=== PATIENT | male | born 1985 | race Caucasian/White ===

== ENCOUNTER 2016-11-09 10:31 | Inpatient (IN) | payer SELFPAY ==
[2016-11-09] MEDS ORDERED: DIPHENHYDRAMINE HCL 50 MG/ML VIAL ONE (10:39)
[2016-11-09] MEDS ORDERED: METHYLPREDNISOLONE INJ 125 MG/2 ML SDV ONE (10:40)
[2016-11-09] MEDS ORDERED: FAMOTIDINE INJ/PF 20 MG/2 ML SDV IV ONE (10:40)
[2016-11-09] MEDS ORDERED: EPINEPHRINE INJ/PF 1 MG/1 ML AMPULE ONE (10:40)
[2016-11-09] MEDS ORDERED: NORMAL SALINE 1000 ML 1,000 ML IV ONE (10:42)
[2016-11-09] MEDS ORDERED: HYDROMORPHONE HCL INJ/PF 2 MG/ML AMPULE IV ONE (10:43)
--- NOTE | 2016-11-09 10:47 | ER Document Report ---
ED General - General Chief Complaint: Facial Swelling Stated Complaint: POSSIBLE ALLERGIC REACTION Time Seen by Provider: 11/09/16 10:42 Notes: 31-year-old male presented with 4 days of worsening lower lip swelling, associated with difficulty swallowing secondary to poor mouth closing. He has no neck or throat pain. The pain in his lip radiates into his chin and he has some left sub-mandibular pain as well. He has not been eating and drinking well with this. No fevers or chills. He states that he pulled a hair, ingrown , out of his left lower lip a few days back and the swelling followed that. He has been taking Bactrim prescribed by urgent care yesterday but has not been helping. No shortness of breath or voice change. TRAVEL OUTSIDE OF THE [place] IN LAST 30 DAYS: No - Related Data Allergies/Adverse Reactions: No Known Allergies Allergy (Verified 11/09/16 10:33) Past Medical History - General Information source: Patient - Social History Smoking Status: Current Every Day Smoker Drug Abuse: Heroin, Prescription drugs Family History: Reviewed & Not Pertinent Patient has suicidal ideation: No Patient has homicidal ideation: No Renal/ Medical History: Denies: Hx Peritoneal Dialysis Skin Medical History: Comment Only Hx MRSA - MRSA 07/21/2008 [facility] Review of Systems - Review of Systems Notes: REVIEW OF SYSTEMS GEN: Denies fever, chills, weight loss ENT: Denies sore throat, nasal discharge, ear pain EYES: Denies blurry vision, eye pain, discharge CV: Denies chest pain, palpitations, edema RESP: Denies cough, shortness of breath, wheezing GI: Denies abdominal pain, nausea, vomiting, diarrhea MSK: Denies joint pain/swelling, edema, SKIN: lower lip swelling LYMPH: Denies swollen glands/lymph nodes NEURO: Denies headache, focal weakness or numbness, dizziness PSYCH: Denies depression, suicidal or homicidal ideation PHYSICAL EXAMINATION General: No acute distress, well-nourished Head: Atraumatic, normocephalic ENT: Induration and fluctuance of the entire lower lip, thickening of the entire lower lip comes symmetric. Normal voice, handling secretions. Inability to close mouth. Left mid mandibular/submandibular tenderness, floor the mouth is soft. Tongue is not elevated. Patient is handling his own secretions. Eyes: Conjunctiva normal, pupils equal, lids normal Neck: No JVD, supple, no guarding CVS: Normal rate, regular rhythm, no murmurs Resp: No resp distress, equal and normal breath sounds bilaterally GI: Nondistended, soft, no tenderness to palpation, no rebound or guarding Ext: No deformities, no edema, normal range of motion in upper and lower ext Back: No CVA or midline TTP Skin: No rash, warm Lymphatic: No lymphadeopathy noted Neuro: Awake, alert. Face symmetric. GCS 15. Physical Exam - Vital signs Vitals: Temp Pulse Resp BP Pulse Ox 97.9 F 80 18 160/89 H 98 11/09/16 10:33 11/09/16 10:33 11/09/16 10:33 11/09/16 10:33 11/09/16 10:33 Course - Re-evaluation Re-evalutation: 11/09/16 10:47 Lower lip cellulitis/abscess. Not septic. Airway intact. Does use injection drugs. Must rule out submandibular spread, Gabe's angina. Ordered CT. Vancomycin and Augmentin ordered along with sepsis workup including culture and lactate. Patient will be transferred and he consents to this. 11/09/16 10:57 11/09/16 12:10 Patient remained stable in the ED. His labs show mild leukocytosis. He is receiving antibiotics. His CAT scan was read to me verbally by Dr. Cisse" from radiology states there is no drainable collection, some lymph nodes submandibular area and a thyroid nodule incidental. Patient was admitted to Dr. Rao who agrees with plan as outlined. - Vital Signs Vital signs: Temp Pulse Resp BP Pulse Ox 97.9 F 80 18 160/89 H 98 11/09/16 10:33 11/09/16 10:33 11/09/16 10:33 11/09/16 10:33 11/09/16 10:33 - Laboratory Result Diagrams: 11/09/16 10:50 11/09/16 10:50 Laboratory results interpreted by me: 11/09/16 11/09/16 10:50 10:50 WBC 13.4 H Absolute Neutrophils 10.2 H Sodium 136.9 L Glucose 146 H - Diagnostic Test Radiology reviewed: Image reviewed, Reports reviewed Discharge - Discharge Clinical Impression: Facial cellulitis Condition: Fair Disposition: ADMITTED INPATIENT Admitting Provider: Hospitalist Unit Admitted: Medical Floor
[2016-11-09 11:00] LABS: ABSOLUTE BASOPHILS # (AUTO) 0.1 10^3/uL (0.0-0.2); ABSOLUTE EOSINOPHILS # (AUTO) 0.1 10^3/uL (0.0-0.6); ABSOLUTE LYMPHOCYTES (AUTO) 2.2 10^3/uL (0.5-4.7); ABSOLUTE MONOCYTES (AUTO) 0.8 10^3/uL (0.1-1.4); ABSOLUTE NEUT (AUTO) 10.2 10^3/uL (1.7-8.2); BASOPHILS % (AUTO) 0.5 % (0-2); EOSINOPHILS % (AUTO) 0.9 % (0-6); HEMATOCRIT 41.3 % (37.9-51.0); HEMOGLOBIN 14.4 g/dL (13.5-17.0); HGB HCT DIFFERENCE 1.9; LYMPHOCYTES % (AUTO) 16.6 % (13-45); MEAN CORPUSCULAR HEMOGLOBIN 31.2 pg (27.0-33.4); MEAN CORPUSCULAR HGB CONC 34.9 g/dL (32.0-36.0); MEAN CORPUSCULAR VOLUME 89 fl (80-97); MONOCYTES % (AUTO) 6.1 % (3-13); RED BLOOD COUNT 4.63 10^6/uL (4.35-5.55); RED CELL DISTRIBUTION WIDTH 12.9 % (11.5-14.0); SEGMENTED NEUTROPHILS % (AUTO) 75.9 % (42-78); WHITE BLOOD COUNT 13.4 10^3/uL (4.0-10.5)
[2016-11-09 11:12] LABS: ANION GAP 12 (5-19); BLOOD UREA NITROGEN 12 mg/dL (7-20); CARBON DIOXIDE 27 mmol/L (22-30); CHLORIDE 98 mmol/L (98-107); CREATININE RESULT 0.98 mg/dL (0.52-1.25); GLUCOSE 146 mg/dL (75-110); POTASSIUM 4.8 mmol/L (3.6-5.0); SODIUM 136.9 mmol/L (137-145)
[2016-11-09] MEDS ORDERED: DEXAMETHASONE SOD PHOS INJ 10 MG/1 ML VIAL IV ONE (11:54)
--- NOTE | 2016-11-09 12:13 | RADIOLOGY REPORT (SQ) ---
EXAM DESCRIPTION: CT SOFT TISSUE NECK WITH COMPLETED DATE/TIME: 11/09/2016 11:32 am REASON FOR STUDY: lower lip sweloling, r/o LUDWIGS (incl upper teeth COMPARISON: None. TECHNIQUE: Post IV contrasted scanning from skull base through lung apices with review of bone, soft tissue and lung windows. Reconstructed coronal and sagittal MPR images reviewed. All images stored on PACS. All CT scanners at this facility use dose modulation, iterative reconstruction, and/or weight based d osing when appropriate to reduce radiation dose to as low as reasonably achievable (ALARA). [facility]: Dose Right [facility]: CareDose [facility]: Dose Right [facility]: Teradose 4D [facility]: Cytonics CONTRAST TYPE AND DOSE: contrast/concentration: Isovue 370.00 mg/ml; Total Contrast Delivered: 75.0 ml; Total Saline Delivered: 55.0 ml RENAL FUNCTION: Creatinine 0.98 RADIATION DOSE: Up-to-date CT equipment and radiation dose reduction techniques were employed. CTDIv ol: 11.9 mGy. DLP: 448 mGy-cm. . LIMITATIONS: None. FINDINGS: SKULL BASE: Intact. MAJOR SALIVARY GLANDS: No solid or cystic masses. No inflammatory changes. LYMPHADENOPATHY: Mildly enlarged submental lymph nodes. MUCOSAL MASSES OR ASYMMETRY: There is diffuse soft tissue swelling over the lower lip, chin, and subm andibular soft tissues from facial cellulitis. On axial image 69 through 73, sagittal image 27 and c oronal image 14, there is a small fluid collection in the soft tissues ventral to the midline anterio r mandible which may be a small soft tissue abscess. This measures 15 x 7 x 3 mm in size. There is no extension of inflammation into the deep floor of mouth structures. 1.4 x 0.6 cm and 1.6 x 1 cm submental lymph nodes are present. There is no airway compromise. No extension of inflammation in the parapharyngeal or prevertebral sp aces. LARYNX/CORDS: No abnormal findings. VASCULAR STRUCTURES: The major vessels are patent. LUNG APICES: Clear. BONES: Intact. THYROID: Normal size. No masses. PARANASAL SINUSES: Clear. OTHER: Report discussed with Dr Morel IMPRESSION: Facial cellulitis along the lower lip, and chin soft tissues with tiny fluid collection present worrisome for small abscess. Submental reactive lymph nodes are present TECHNICAL DOCUMENTATION: JOB ID: [id number] Quality ID # [id number]: Final reports with documentation of one or more dose reduction techniques (e.g., Au tomated exposure control, adjustment of the mA and/or kV according to patient size, use of iterative reconstruction technique) 2010 [employer]- All Rights Reserved
[2016-11-09] MEDS ORDERED: HYDROMORPHONE HCL INJ/PF 2 MG/ML AMPULE IV PRN (13:20)
[2016-11-09] MEDS ORDERED: NORMAL SALINE 1000 ML 2,000 ML IV ONE (13:22)
[2016-11-09] MEDS ORDERED: HYDROXYZINE PAMOATE 50 MG CAPSULE PO PRN (13:22)
[2016-11-09] MEDS ORDERED: NORMAL SALINE 1000 ML 1,000 ML IV PRN (13:22)
[2016-11-09] MEDS ORDERED: ACETAMINOPHEN 325 MG TABLET PO PRN (13:24)
[2016-11-09] MEDS ORDERED: MAG HYDROX/AL HYDROX/SIMETH SUSP 30 ML UDCUP PO PRN (13:24)
[2016-11-09] MEDS ORDERED: MAGNESIUM HYDROXIDE SUSP 30 ML UDCUP PO PRN (13:24)
[2016-11-09] MEDS ORDERED: ONDANSETRON HCL INJ/PF 4 MG/2 ML SDV IV PRN (13:24)
[2016-11-09] MEDS ORDERED: PIPERACILLIN SODIUM/TAZOBACTAM 4.5 GM in NORMAL SALINE 100 ML IV SCH (13:45)
[2016-11-09] MEDS ORDERED: VANCOMYCIN HCL 0 MG in DEXTROSE 5%-WATER 250 ML IV NR (13:45)
[2016-11-09] MEDS ORDERED: DEXAMETHASONE SOD PHOS INJ 10 MG/1 ML VIAL IV SCH (14:00)
[2016-11-09] MEDS ORDERED: KETOROLAC TROMETHAMINE INJ/PF 30 MG/1 ML SDV IV ONE (14:00)
[2016-11-09] MEDS ORDERED: VANCOMYCIN HCL 1,250 MG in DEXTROSE 5%-WATER 250 ML IV ONE (14:30)
[2016-11-09] MEDS ORDERED: PIPERACILLIN SODIUM/TAZOBACTAM 3.375 GM in NORMAL SALINE 100 ML IV ONE (15:00)
[2016-11-09 15:04] LABS: TROPONIN I < 0.012 ng/mL
[2016-11-09] MEDS: DEXAMETHASONE SOD PHOS INJ 10 MG/1 ML VIAL IV SCH ×2 (16:19→23:07)
[2016-11-09] MEDS: DOCUSATE SODIUM 100 MG CAPSULE PO SCH (16:20)
--- NOTE | 2016-11-09 17:54 | PDOC H&P ---
History of Present Illness Admission Date/PCP: 11/09/16 13:13 History of Present Illness: LAURA GUTIERREZ II is a 31 year old male with a past medical history of heroin abuse who presents with complaints of lower lip swelling. Patient reports that he had an ingrown hair on the outside of his lower lip and he pulled it and subsequently his lip has become swollen and erythematous over the past 48 hours. He was given a prescription for Bactrim by Dr. Schuster, his mother's physician. He notes no improvement with this. He does report associated fever and chills. He denies any internal trauma to his mouth. He is referred to hospital service for facial cellulitis Past Medical History Psychiatric Medical History: Reports: Substance Abuse, Tobacco Dependency Past Surgical History Past Surgical History: Reports: None Social History Smoking Status: Current Every Day Smoker Cigarettes Packs Per Day: 0.2 Frequency of Alcohol Use: Social Hx Recreational Drug Use: Yes Drugs: Heroin - Advance Directive Resuscitation Status: Full Code Surrogate healthcare decision maker:: Father, Eleno Gutierrez Family History Family History: DM Parental Family History Reviewed: Yes Children Family History Reviewed: Yes Sibling(s) Family History Reviewed.: Yes Medication/Allergy Home Medications: No Home Medications 11/09/16 Allergies/Adverse Reactions: No Known Allergies Allergy (Verified 11/09/16 10:33) Review of Systems Constitutional: PRESENT: chills, fever(s). ABSENT: headache(s), weight gain, weight loss Eyes: ABSENT: visual disturbances Ears: ABSENT: hearing changes Nose, Mouth, and Throat: PRESENT: mouth pain Cardiovascular: ABSENT: chest pain, dyspnea on exertion, edema, orthropnea, palpitations Respiratory: ABSENT: cough, hemoptysis Gastrointestinal: ABSENT: abdominal pain, constipation, diarrhea, hematemesis, hematochezia, nausea, vomiting Genitourinary: ABSENT: dysuria, hematuria Musculoskeletal: ABSENT: joint swelling Integumentary: ABSENT: rash, wounds Neurological: ABSENT: abnormal gait, abnormal speech, confusion, dizziness, focal weakness, syncope Psychiatric: ABSENT: anxiety, depression, homidical ideation, suicidal ideation Endocrine: ABSENT: cold intolerance, heat intolerance, polydipsia, polyuria Hematologic/Lymphatic: ABSENT: easy bleeding, easy bruising Physical Exam Vital Signs: Temp Pulse Resp BP Pulse Ox 97.9 F 80 18 160/89 H 98 11/09/16 10:33 11/09/16 10:33 11/09/16 10:33 11/09/16 10:33 11/09/16 10:33 General appearance: PRESENT: mild distress, well-developed, well-nourished Head exam: PRESENT: atraumatic, normocephalic Eye exam: PRESENT: conjunctival injection, conjunctiva pink, EOMI, PERRLA. ABSENT: scleral icterus Ear exam: PRESENT: normal external ear exam Mouth exam: PRESENT: dry mucosa, tongue midline, other - Significant swelling and induration as well as erythema of his lower lip and mental region, bullous lesion focused on the lateral left labia inferior Teeth exam: PRESENT: dental caries Throat exam: ABSENT: post pharyngeal erythema, tonsillar erythema, tonsillogmegaly Neck exam: PRESENT: lymphadenopathy - Shotty anterior cervical. ABSENT: JVD, thyromegaly, tracheal deviation Respiratory exam: PRESENT: clear to auscultation chanell, prolonged expiratory phas. ABSENT: rales, rhonchi, wheezes Cardiovascular exam: PRESENT: RRR, +S1, +S2. ABSENT: diastolic murmur, gallop, rubs, systolic murmur, tachycardia Pulses: PRESENT: normal dorsalis pedis pul Vascular exam: PRESENT: normal capillary refill GI/Abdominal exam: PRESENT: normal bowel sounds, soft. ABSENT: distended, guarding, mass, organolmegaly, rebound, tenderness Rectal exam: PRESENT: deferred Extremities exam: PRESENT: full ROM. ABSENT: calf tenderness, clubbing, pedal edema Neurological exam: PRESENT: alert, awake, oriented to person, oriented to place , oriented to time, oriented to situation, CN II-XII grossly intact. ABSENT: motor sensory deficit Psychiatric exam: PRESENT: appropriate affect, normal mood. ABSENT: homicidal ideation, suicidal ideation Skin exam: PRESENT: dry, warm, other - Round excoriated lesions scattered on his trunk in various states of healing. ABSENT: cyanosis, rash Results Laboratory Results: 11/09/16 11/09/16 11/09/16 10:50 10:50 11:04 WBC 13.4 H Hgb 14.4 Hct 41.3 Plt Count 218 Sodium 136.9 L Creatinine 0.98 Glucose 146 H Lactic Acid 1.0 Impressions: Soft Tissue Neck CT 11/09/16 10:44 IMPRESSION: Facial cellulitis along the lower lip, and chin soft tissues with tiny fluid collection present worrisome for small abscess. Submental reactive lymph nodes are present Status: Imported from PACS Assessment & Plan - Diagnosis (1) Facial cellulitis Is this a current diagnosis for this admission?: Yes Plan: Place patient on vancomycin and Unasyn. Blood cultures have been obtained. Dexamethasone 8 mg IV every 6, Toradol, and Dilaudid as needed. Oral surgery has been consulted. And I obtained HSV serology and surface culture from wound. (2) Tobacco abuse Is this a current diagnosis for this admission?: Yes Plan: Have offered nicotine patch Advised to stop (3) Heroin abuse Is this a current diagnosis for this admission?: Yes Plan: Patient presents with signs of withdrawal will treat with clonidine - Time Time Spent: 30 to 50 Minutes Medications reviewed and adjusted accordingly: Yes Anticipated discharge: Home - Inpatient Certification Based on my medical assessment, after consideration of the patient's comorbidities, presenting symptoms, or acuity I expect that the services needed warrant INPATIENT care.: Yes I certify that my determination is in accordance with my understanding of Medicare's requirements for reasonable and necessary INPATIENT services [42 CFR 412.3e].: Yes Medical Necessity: Need For IV Fluids, Need for IV Antibiotics, Need for Surgery Post Hospital Care: D/C Driver License Examiner Documentation
[2016-11-09] MEDS: OXYCODONE-ACETAMINOPHEN 5-325 MG TABLET PO PRN (20:12)
[2016-11-09] MEDS: PIPERACILLIN SODIUM/TAZOBACTAM 3.375 GM in NORMAL SALINE 100 ML IV SCH (20:12)
[2016-11-09 20:18] LABS: CREATINE KINASE MB 0.76 ng/mL (<4.55)
[2016-11-09 20:22] LABS: TROPONIN I < 0.012 ng/mL
[2016-11-09] MEDS: KETOROLAC TROMETHAMINE INJ/PF 30 MG/1 ML SDV IV PRN (23:07)
[2016-11-09] MEDS: VANCOMYCIN HCL 1,250 MG in DEXTROSE 5%-WATER 250 ML IV SCH (23:07)
[2016-11-10 02:19] LABS: CREATINE KINASE MB 0.77 ng/mL (<4.55)
[2016-11-10 02:24] LABS: TROPONIN I < 0.012 ng/mL
[2016-11-10] MEDS: PIPERACILLIN SODIUM/TAZOBACTAM 3.375 GM in NORMAL SALINE 100 ML IV SCH ×4 (03:12→20:07)
[2016-11-10] MEDS: VANCOMYCIN HCL 1,250 MG in DEXTROSE 5%-WATER 250 ML IV SCH ×3 (05:16→22:22)
[2016-11-10] MEDS: KETOROLAC TROMETHAMINE INJ/PF 30 MG/1 ML SDV IV PRN ×2 (05:16→18:52)
[2016-11-10] MEDS: DEXAMETHASONE SOD PHOS INJ 10 MG/1 ML VIAL IV SCH ×3 (05:16→22:22)
[2016-11-10 06:11] LABS: ABSOLUTE MONOCYTES (AUTO) 0.2 10^3/uL (0.1-1.4); ABSOLUTE NEUT (AUTO) 13.1 10^3/uL (1.7-8.2); BASOPHILS % (AUTO) 0.2 % (0-2); HEMOGLOBIN 13.4 g/dL (13.5-17.0); HGB HCT DIFFERENCE 1.2; LYMPHOCYTES % (AUTO) 6.9 % (13-45); MEAN CORPUSCULAR HEMOGLOBIN 30.7 pg (27.0-33.4); MEAN CORPUSCULAR HGB CONC 34.5 g/dL (32.0-36.0); MEAN CORPUSCULAR VOLUME 89 fl (80-97); MONOCYTES % (AUTO) 1.4 % (3-13); RED BLOOD COUNT 4.38 10^6/uL (4.35-5.55); RED CELL DISTRIBUTION WIDTH 12.8 % (11.5-14.0); SEGMENTED NEUTROPHILS % (AUTO) 91.5 % (42-78); WHITE BLOOD COUNT 14.3 10^3/uL (4.0-10.5)
[2016-11-10 06:23] LABS: ALANINE AMINOTRANSFERASE 62 U/L (21-72); ALBUMIN 3.9 g/dL (3.5-5.0); ALKALINE PHOSPHATASE 68 U/L (38-126); ANION GAP 10 (5-19); ASPARTATE AMINO TRANSFERASE 24 U/L (17-59); BILIRUBIN,DIRECT 0.4 mg/dL (0.0-0.4); BILIRUBIN,TOTAL 0.6 mg/dL (0.2-1.3); BLOOD UREA NITROGEN 18 mg/dL (7-20); CALCIUM 9.3 mg/dL (8.4-10.2); CARBON DIOXIDE 22 mmol/L (22-30); CHLORIDE 110 mmol/L (98-107); CREATININE RESULT 0.79 mg/dL (0.52-1.25); GLUCOSE 147 mg/dL (75-110); MAGNESIUM 2.2 mg/dL (1.6-2.3); POTASSIUM 4.5 mmol/L (3.6-5.0); SODIUM 141.5 mmol/L (137-145); TOTAL PROTEIN 7.4 g/dL (6.3-8.2)
[2016-11-10 07:21] LABS: URINE BARBITURATES SCREEN NEGATIVE; URINE METHADONE SCREEN NEGATIVE
[2016-11-10 07:41] LABS: URINE PHENCYCLIDINE SCREEN NEGATIVE
[2016-11-10 07:43] LABS: URINE OPIATES LOW UNCONFIRMED POSITIVE
[2016-11-10] MEDS: DOCUSATE SODIUM 100 MG CAPSULE PO SCH ×2 (09:02→18:38)
[2016-11-10] MEDS: ENOXAPARIN SODIUM INJ 40 MG/0.4 ML DISP.SYRIN SUBCUT SCH (09:05)
[2016-11-10] MEDS ORDERED: LIDOCAINE 2% VISCOUS SOLN 20 ML UDCUP PO PRN (12:32)
[2016-11-10] MEDS: HYDROMORPHONE HCL INJ/PF 2 MG/ML AMPULE IV PRN (12:38)
[2016-11-10] MEDS: BENZONATATE 100 MG CAPSULE PO SCH ×2 (14:46→22:22)
[2016-11-10] MEDS: VALACYCLOVIR HCL 500 MG TABLET PO SCH ×2 (14:47→22:26)
--- NOTE | 2016-11-10 18:59 | PDOC PROGRESS REPORT ---
Subjective Progress Note for:: 11/10/16 Subjective:: Patient complains of mouth pain Denied fever, chills, CP, SOB, abd pain, d/c. Physical Exam Vital Signs: Temp Pulse Resp BP Pulse Ox 97.7 F 50 L 18 126/58 H 99 11/09/16 23:12 11/09/16 23:12 11/09/16 23:12 11/09/16 23:12 11/09/16 23:12 Intake & Output 11/09/16 11/10/16 11/11/16 06:59 06:59 06:59 Intake Total 2106 Output Total 200 Balance 1906 Weight 85.7 kg Exam: General: Awake alert, oriented to person, place, time, situation, mild pain HEENT: AT/NC, PERRL, oropharynx is moist, pink, swollen lip with inner eschar, no scleral icterus, no conjunctival injection Neck: No JVD, trachea midline Chest: Clear to auscultation bilaterally, no wheezes rhonchi or rales CV: Regular rate and rhythm, normal S1 and S2, no rub or gallop, murmur Abdomen: Soft, nontender to palpation, nondistended, active bowel sounds; no rebound, rigidity, or guarding Extremities: No cyanosis, clubbing, edema Neuro: CN 2-12 grossly intact without deficit Psych: normal mood and affect Results Laboratory Results: 11/10/16 05:59 11/10/16 05:59 11/10/16 11/10/16 05:59 05:59 WBC 14.3 H RBC 4.38 Hgb 13.4 L Hct 39.0 MCV 89 MCH 30.7 MCHC 34.5 RDW 12.8 Plt Count 209 Seg Neutrophils % 91.5 H Lymphocytes % 6.9 L Monocytes % 1.4 L Eosinophils % 0.0 Basophils % 0.2 Absolute Neutrophils 13.1 H Absolute Lymphocytes 1.0 Absolute Monocytes 0.2 Absolute Eosinophils 0.0 Absolute Basophils 0.0 Sodium 141.5 Potassium 4.5 Chloride 110 H Carbon Dioxide 22 Anion Gap 10 BUN 18 Creatinine 0.79 Est GFR ( Amer) > 60 Est GFR (Non-Af Amer) > 60 Glucose 147 H Calcium 9.3 Magnesium 2.2 Total Bilirubin 0.6 AST 24 ALT 62 Alkaline Phosphatase 68 Total Protein 7.4 Albumin 3.9 0811/09/16 11/09/16 14:14 14:14 19:40 Creatine Kinase 56 74 CK-MB (CK-2) 0.70 Troponin I < 0.012 11/09/16 11/10/16 11/10/16 19:40 01:19 01:19 Creatine Kinase 45 L CK-MB (CK-2) 0.76 0.77 Troponin I < 0.012 < 0.012 Impressions: Soft Tissue Neck CT 11/09/16 10:44 IMPRESSION: Facial cellulitis along the lower lip, and chin soft tissues with tiny fluid collection present worrisome for small abscess. Submental reactive lymph nodes are present Assessment & Plan - Diagnosis (1) Facial cellulitis Is this a current diagnosis for this admission?: Yes Plan: Place patient on vancomycin and Unasyn. Blood cultures pending. Dexamethasone 8 mg IV every 8, Toradol, and Dilaudid as needed. ENT has been consulted. HSV serology and surface culture pending (2) Tobacco abuse Is this a current diagnosis for this admission?: Yes (3) Heroin abuse Is this a current diagnosis for this admission?: Yes - Time Time Spent with patient: 15-24 minutes Medications reviewed and adjusted accordingly: Yes
[2016-11-10] MEDS: OXYCODONE-ACETAMINOPHEN 5-325 MG TABLET PO PRN (20:07)
[2016-11-10] MEDS: BACITRACIN ZINC OINTMENT 15 GM TP SCH (22:22)
[2016-11-11] MEDS: OXYCODONE-ACETAMINOPHEN 5-325 MG TABLET PO PRN ×4 (03:20→22:03)
[2016-11-11] MEDS: PIPERACILLIN SODIUM/TAZOBACTAM 3.375 GM in NORMAL SALINE 100 ML IV SCH ×2 (03:20→09:43)
[2016-11-11] MEDS: BACITRACIN ZINC OINTMENT 15 GM TP SCH ×4 (03:20→22:03)
[2016-11-11 04:51] LABS: ABSOLUTE LYMPHOCYTES (AUTO) 0.9 10^3/uL (0.5-4.7); ABSOLUTE MONOCYTES (AUTO) 0.3 10^3/uL (0.1-1.4); ABSOLUTE NEUT (AUTO) 13.9 10^3/uL (1.7-8.2); BASOPHILS % (AUTO) 0.3 % (0-2); LYMPHOCYTES % (AUTO) 6.2 % (13-45); MEAN CORPUSCULAR HEMOGLOBIN 30.5 pg (27.0-33.4); MEAN CORPUSCULAR HGB CONC 34.4 g/dL (32.0-36.0); MEAN CORPUSCULAR VOLUME 89 fl (80-97); RED BLOOD COUNT 3.95 10^6/uL (4.35-5.55); RED CELL DISTRIBUTION WIDTH 13.2 % (11.5-14.0); SEGMENTED NEUTROPHILS % (AUTO) 91.5 % (42-78); WHITE BLOOD COUNT 15.2 10^3/uL (4.0-10.5)
[2016-11-11] MEDS: BENZONATATE 100 MG CAPSULE PO SCH ×3 (05:21→22:03)
[2016-11-11] MEDS: DEXAMETHASONE SOD PHOS INJ 10 MG/1 ML VIAL IV SCH (05:21)
[2016-11-11] MEDS: VANCOMYCIN HCL 1,250 MG in DEXTROSE 5%-WATER 250 ML IV SCH ×3 (05:22→22:03)
[2016-11-11] MEDS: VALACYCLOVIR HCL 500 MG TABLET PO SCH ×3 (05:22→22:02)
[2016-11-11] MEDS: KETOROLAC TROMETHAMINE INJ/PF 30 MG/1 ML SDV IV PRN ×3 (05:24→23:34)
--- NOTE | 2016-11-11 06:52 | CONSULTATION REPORT E ---
Consultation Report NAME: LAURA GUTIERREZ : 1985 AGE: 31Y DATE: 11/10/2016 415 A TO: RAQEUL MUSTAFA M.D. FROM: BREANN TOBIAS M.D. Requesting Physician PRESENTING COMPLAINT: Swelling and discoloration of the lower lip. HISTORY OF PRESENT ILLNESS: Otolaryngology was asked to see this 31-year-old patient by Dr. Breann Tobias. The patient is a known cigarette smoker and intravenous heroin user who approximately 4 days ago apparently plucked an ingrowing hair from the skin of the chin just below the vermilion border and slightly to the left of the midline. The patient states that this was on the evening of November 05. He said that the area became swollen and painful and he states that he went to an urgent care. Tonight, he told this physician that this was on 11/06/2016. It appears that his previous medical attendants have been told a different date. He states that it was at this time that the physician there gave him a course of Bactrim. Unfortunately, this medication did not produce improvement. The patient presented to the [facility] emergency department on the morning of 11/09/2016. A CT scan was obtained and the report for this is available in the EMR. He was then admitted for intravenous antibiotics. Dr. Tobias apparently consulted [facility]. It is not clear whether or not [facility] actually physically saw the patient, but they recommended the addition of Decadron. Today, the patient does not appear to be making clinical progress, and there was a black eschar apparently on the superficial surface of the lower lip to the left of the midline, and this was concerning to Dr. Tobias, and therefore, Otolaryngology was consulted. PAST MEDICAL HISTORY: Positive for substance abuse and tobacco dependency. PAST SURGICAL HISTORY: Noncontributory. SOCIAL HISTORY: Reveals that he is a cigarette smoker. He relates that he has recently lost a divorce ibanez and that would also include loss of custody for his daughter and he is very sad about this. 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 He states he works for "a friend." MEDICATIONS: Bactrim DS. ALLERGIES: No known drug allergies. SYSTEMS REVIEW: Surprisingly benign. He has difficulty eating because of the lower lip, but otherwise there are no abnormalities in the 10-point systems review. PHYSICAL EXAMINATION: GENERAL: Reveals a slim, generally healthy-appearing, male who has a pimentel. He is seen lying completely supine in the hospital bed. He remains very still and answers in a monosyllabic way. HEENT: In the head and neck region, pupils are small, but reacting. External ocular movements full and equal. The nose reveals mild septal angulation. Oral exam reveals massive enlargement of the lower lip. Most of the swelling is to the left of the midline, but it crosses the midline onto the right. There is indeed a superficial black discoloration of the mucosa of the lip. In the oral cavity, the teeth have multiple caries and there is advanced plaque formation. Otherwise, no obvious abnormality. Cervical exam reveals surprisingly little in the way of cervical lymphadenopathy. There is mild tenderness in the submental region. There is a crust to the left of the midline immediately below the vermilion border, which is assumed to be the situation of his "ingrown hair." Bimanual palpation of the lip itself reveals that the lip appears almost solid and tense. There is no fluctuance whatever. There is a fair amount of tenderness. LABORATORY : The recent lab studies performed at [facility] were reviewed and reveal a white cell count of 13,400, hemoglobin is 14.4 grams, hematocrit 41.3, platelet count 218,000. Glucose 146. Sodium is low at 136.9. RADIOLOGY: The CT scan was reviewed personally by me. The report by Dr. Calixto was reviewed. The small abscess she notes in the soft tissues is difficult to see. She measures it at 15 mm x 7 mm x 3 mm. This would be extremely small and difficult to target even with a syringe and needle. The submental lymph nodes are appreciated. The lesion in the thyroid gland is also confirmed. IMPRESSION: Probable Staphylococcal infection of the lower lip and skin of the chin area with low-grade regional lymphadenopathy. Likely, this will be an MRSA. The choice of piperacillin/tazobactam is intriguing. Dr. Tobias had written that she was planning to treat him with vancomycin and possibly Unasyn, and evidently that did not come to pass. He is also currently receiving Decadron 10 mg intravenously on a q. 8 hour schedule. PLAN: At this stage, aspiration or incision and drainage is not recommended. It is suggested that bacitracin be used on the surface of the lip as this appears to be drying out. This could be done on a q. 6 hour basis. Otolaryngology will follow along this case. DICTATING PHYSICIAN: RAQUEL MUSTAFA M.D. [id number] PHY#: [id number] ID: [id number] JOB#: [id number] ACCT: [id number] cc:RAQUEL MUSTAFA M.D. > MTDD
[2016-11-11] MEDS: HYDROMORPHONE HCL INJ/PF 2 MG/ML AMPULE IV PRN (09:43)
[2016-11-11] MEDS: DOCUSATE SODIUM 100 MG CAPSULE PO SCH ×2 (09:44→17:33)
[2016-11-11] MEDS: ENOXAPARIN SODIUM INJ 40 MG/0.4 ML DISP.SYRIN SUBCUT SCH (09:47)
[2016-11-11] MEDS ORDERED: HYDROMORPHONE HCL INJ/PF 2 MG/ML AMPULE IV PRN (11:41)
[2016-11-11] MEDS ORDERED: DEXAMETHASONE 4 MG TABLET PO ONE (13:00)
--- NOTE | 2016-11-11 18:04 | PDOC PROGRESS REPORT ---
Subjective Progress Note for:: 11/11/16 Subjective:: Patient complains of mouth pain Denied fever, chills, CP, SOB, abd pain, d/c. Patient's father is at bedside Physical Exam Vital Signs: Temp Pulse Resp BP Pulse Ox 98.3 F 56 L 18 113/62 100 11/11/16 07:13 11/11/16 07:13 11/11/16 07:13 11/11/16 07:13 11/11/16 07:13 Intake & Output 11/10/16 11/11/16 11/12/16 06:59 06:59 06:59 Intake Total 2106 3940 Output Total 200 875 Balance 1906 3065 Weight 85.7 kg 87.5 kg Exam: General: Awake alert, oriented to person, place, time, situation, no acute respiratory distress HEENT: AT/NC, PERRL, oropharynx is moist, pink, improved but still swollen lip with inner eschar, no scleral icterus, no conjunctival injection Neck: No JVD, trachea midline Chest: Clear to auscultation bilaterally, no wheezes rhonchi or rales CV: Regular rate and rhythm, normal S1 and S2, no rub or gallop, murmur Abdomen: Soft, nontender to palpation, nondistended, active bowel sounds; no rebound, rigidity, or guarding Extremities: No cyanosis, clubbing, edema Neuro: CN 2-12 grossly intact without deficit Psych: normal mood and affect Results Laboratory Results: 11/11/16 04:38 11/10/16 05:59 11/11/16 04:38 WBC 15.2 H RBC 3.95 L Hgb 12.0 L Hct 35.0 L MCV 89 MCH 30.5 MCHC 34.4 RDW 13.2 Plt Count 217 Seg Neutrophils % 91.5 H Lymphocytes % 6.2 L Monocytes % 2.0 L Eosinophils % 0.0 Basophils % 0.3 Absolute Neutrophils 13.9 H Absolute Lymphocytes 0.9 Absolute Monocytes 0.3 Absolute Eosinophils 0.0 Absolute Basophils 0.0 11/09/16 11/09/16 11/09/16 14:14 14:14 19:40 Creatine Kinase 56 74 CK-MB (CK-2) 0.70 Troponin I < 0.012 11/09/16 11/10/16 11/10/16 19:40 01:19 01:19 Creatine Kinase 45 L CK-MB (CK-2) 0.76 0.77 Troponin I < 0.012 < 0.012 Impressions: Soft Tissue Neck CT 11/09/16 10:44 IMPRESSION: Facial cellulitis along the lower lip, and chin soft tissues with tiny fluid collection present worrisome for small abscess. Submental reactive lymph nodes are present Assessment & Plan - Diagnosis (1) Facial cellulitis Is this a current diagnosis for this admission?: Yes Plan: Continue patient on vancomycin and stop Zosyn. Patient appears to be significantly improved today. Will consider eventual taper to clindamycin for discharge. Taper Decadron to 4 mg p.o. 3 times daily. Continue Valtrex while awaiting HSV serology. Appreciate ENT consultation. HSV serology and surface culture pending (2) Tobacco abuse Is this a current diagnosis for this admission?: Yes Plan: Have offered nicotine patch Advised to stop (3) Heroin abuse Is this a current diagnosis for this admission?: Yes Plan: Patient presents with signs of withdrawal will treat with clonidine - Time Time Spent with patient: 15-24 minutes Medications reviewed and adjusted accordingly: Yes Anticipated discharge: Home Within: within 48 hours
[2016-11-11] MEDS: DEXAMETHASONE 4 MG TABLET PO SCH (22:03)
[2016-11-12] MEDS: BACITRACIN ZINC OINTMENT 15 GM TP SCH ×2 (03:26→10:31)
[2016-11-12 05:01] LABS: ABSOLUTE LYMPHOCYTES (AUTO) 1.3 10^3/uL (0.5-4.7); ABSOLUTE MONOCYTES (AUTO) 0.3 10^3/uL (0.1-1.4); ABSOLUTE NEUT (AUTO) 7.9 10^3/uL (1.7-8.2); BASOPHILS % (AUTO) 0.2 % (0-2); HEMATOCRIT 36.3 % (37.9-51.0); HEMOGLOBIN 12.6 g/dL (13.5-17.0); HGB HCT DIFFERENCE 1.5; LYMPHOCYTES % (AUTO) 13.8 % (13-45); MEAN CORPUSCULAR HEMOGLOBIN 30.9 pg (27.0-33.4); MEAN CORPUSCULAR HGB CONC 34.7 g/dL (32.0-36.0); MEAN CORPUSCULAR VOLUME 89 fl (80-97); MONOCYTES % (AUTO) 3.2 % (3-13); RED BLOOD COUNT 4.08 10^6/uL (4.35-5.55); RED CELL DISTRIBUTION WIDTH 12.9 % (11.5-14.0); SEGMENTED NEUTROPHILS % (AUTO) 82.8 % (42-78); WHITE BLOOD COUNT 9.6 10^3/uL (4.0-10.5)
[2016-11-12] MEDS: DEXAMETHASONE 4 MG TABLET PO SCH ×2 (06:12→15:45)
[2016-11-12] MEDS: VALACYCLOVIR HCL 500 MG TABLET PO SCH ×2 (06:12→15:46)
[2016-11-12] MEDS: VANCOMYCIN HCL 1,250 MG in DEXTROSE 5%-WATER 250 ML IV SCH (06:17)
[2016-11-12] MEDS: KETOROLAC TROMETHAMINE INJ/PF 30 MG/1 ML SDV IV PRN ×2 (06:17→15:47)
[2016-11-12] MEDS: OXYCODONE-ACETAMINOPHEN 5-325 MG TABLET PO PRN ×3 (06:17→15:46)
[2016-11-12] MEDS: BENZONATATE 100 MG CAPSULE PO SCH ×2 (06:17→15:46)
[2016-11-12 10:01] LABS: HSV-I IGG AB <0.91 index (0.00-0.90)
[2016-11-12 10:02] LABS: HSV I AND II IGM AB 1.11 Ratio (0.00-0.90)
[2016-11-12] MEDS: ENOXAPARIN SODIUM INJ 40 MG/0.4 ML DISP.SYRIN SUBCUT SCH (10:34)
[2016-11-12] MEDS: DOCUSATE SODIUM 100 MG CAPSULE PO SCH ×2 (10:34→18:35)
[2016-11-12] MEDS: CLINDAMYCIN 600 MG/D5W RTU 600 MG/50 ML RTUPB IV SCH (15:47)
--- NOTE | 2016-11-12 15:47 | CONSULTATION REPORT E ---
Consultation Report NAME: LAURA GUTIERREZ : 1985 AGE: 31Y DATE: 11/12/2016 ROOM: [id number] A TO: RAQUEL MUSTAFA M.D. FROM: ALAINA TOBIAS M.D. Requesting Physician OTOLARYNGOLOGY CONSULT/IN-HOSPITAL FOLLOW-UP VISIT: This 31-year-old man was seen in consultation at the request of Dr. Tobias 48 hours ago because of what appeared to be an MRSA infection of the left lower lip. The patient is being treated with high-dose appropriate antibiotics and also Decadron. The patient states that he is making, in his mind, very little progress. Objectively, the swelling is mildly reduced. Examination reveals that the tenseness has certainly gone down in the lip, but the black eschar appears to be still present, but it appears as if the more normal-appearing mucosa surrounding this is "pulling away", to leave what seems to be a developing ulcer, with the blackened area being an "island" in the middle of this. He has 2 smaller ulcers on the lingual aspect of the left lower lip, right down in the vestibule/gingivobuccal sulcus, close to the lateral incisor and canine teeth on that side.( Teeth #22 and 23) The lip mucosa otherwise has been moistened with Bacitracin and that appears to be helping it and preventing it from drying out. IMPRESSION: 1. Slow progress. 2. Had this been an MRSA infection, one would have expected to see more dramatic progress than this. The "good news" is that there appears to be a reduction in the white count, which is now below 10,000. However, one cannot help escape the feeling that the patient's condition is much more consistent with a localized trauma to the area than an infection from auto-instrumentation for an "ingrowing hair." The patient was again confronted with the idea that the etiology might have been due to a burn, but he strenuously denies this. It, therefore, remains to be seen whether his progress fits more appropriately into the category of infection, or (?more likely? ) into a category that would have been the result of some kind of trauma, be it thermal, chemical or physical. At this point, this physician has no further contribution to give to Dr. Tobias. It is felt that time now needs to elapse in order to allow the patient to display which way Mother Nature is going to take things. DICTATING PHYSICIAN: RAQUEL MUSTAFA M.D. [id number] PHY#: [id number] ID: [id number] JOB#: [id number] ACCT: [id number] cc:RAQUEL MUSTAFA M.D. > MTDD
--- NOTE | 2016-11-12 17:18 | PDOC PROGRESS REPORT ---
Subjective Progress Note for:: 11/12/16 Subjective:: Reports that since beginning using the bacitracin on his lip that he has been having significant nausea. He denies vomiting. He reports he has been having bowel movements. Patient denies chest pain, shortness of breath, abdominal pain, vomiting, fevers , chills, diarrhea, constipation, headache, new onset weakness. Physical Exam Vital Signs: Temp Pulse Resp BP Pulse Ox 98.2 F 74 20 133/57 H 99 11/12/16 00:00 11/12/16 00:00 11/12/16 00:00 11/12/16 00:00 11/12/16 00:00 Intake & Output 11/11/16 11/12/16 11/13/16 06:59 06:59 06:59 Intake Total 3940 1955 Output Total 875 525 Balance 3065 1430 Weight 87.5 kg 87.2 kg Exam: General: Awake alert, oriented to person, place, time, situation, no acute respiratory distress HEENT: AT/NC, PERRL, oropharynx is moist, pink, improved but still swollen lip with inner eschar that has peeling around the edge, no scleral icterus, no conjunctival injection Neck: No JVD, trachea midline Chest: Clear to auscultation bilaterally, no wheezes rhonchi or rales CV: Regular rate and rhythm, normal S1 and S2, no rub or gallop, murmur Abdomen: Soft, nontender to palpation, nondistended, active bowel sounds; no rebound, rigidity, or guarding Extremities: No cyanosis, clubbing, edema Neuro: CN 2-12 grossly intact without deficit Psych: normal mood and affect Results Laboratory Results: 11/12/16 04:51 11/10/16 05:59 11/12/16 04:51 WBC 9.6 RBC 4.08 L Hgb 12.6 L Hct 36.3 L MCV 89 MCH 30.9 MCHC 34.7 RDW 12.9 Plt Count 225 Seg Neutrophils % 82.8 H Lymphocytes % 13.8 Monocytes % 3.2 Eosinophils % 0.0 Basophils % 0.2 Absolute Neutrophils 7.9 Absolute Lymphocytes 1.3 Absolute Monocytes 0.3 Absolute Eosinophils 0.0 Absolute Basophils 0.0 11/09/16 11/09/16 11/09/16 14:14 14:14 19:40 Creatine Kinase 56 74 CK-MB (CK-2) 0.70 Troponin I < 0.012 11/09/16 11/10/16 11/10/16 19:40 01:19 01:19 Creatine Kinase 45 L CK-MB (CK-2) 0.76 0.77 Troponin I < 0.012 < 0.012 Impressions: Soft Tissue Neck CT 11/09/16 10:44 IMPRESSION: Facial cellulitis along the lower lip, and chin soft tissues with tiny fluid collection present worrisome for small abscess. Submental reactive lymph nodes are present Assessment & Plan - Diagnosis (1) Facial cellulitis Is this a current diagnosis for this admission?: Yes Plan: Patient appears to be significantly improved today. Transition patient to clindamycin, and if he is improved or relatively the same may be discharged home on this medication. Taper Decadron to 4 mg p.o. 3 times daily. Continue Valtrex while awaiting HSV serology. Appreciate ENT consultation. HSV serology and surface culture pending (2) Tobacco abuse Is this a current diagnosis for this admission?: Yes Plan: Have offered nicotine patch Advised to stop (3) Heroin abuse Is this a current diagnosis for this admission?: Yes Plan: Patient presents with signs of withdrawal will treat with clonidine (4) Herpes stomatitis Is this a current diagnosis for this admission?: Yes Plan: Continue patient on Valtrex 1000 mg p.o. 3 times daily. - Time Time Spent with patient: 25-34 minutes Medications reviewed and adjusted accordingly: Yes - Inpatient Certification Based on my medical assessment, after consideration of the patient's comorbidities, presenting symptoms, or acuity I expect that the services needed warrant INPATIENT care.: Yes I certify that my determination is in accordance with my understanding of Medicare's requirements for reasonable and necessary INPATIENT services [42 CFR 412.3e].: Yes Medical Necessity: Need for IV Antibiotics Post Hospital Care: D/C Manufacturing Test Technician Documentation
[2016-11-13] MEDS: CLINDAMYCIN 600 MG/D5W RTU 600 MG/50 ML RTUPB IV SCH ×3 (00:18→14:16)
[2016-11-13] MEDS: OXYCODONE-ACETAMINOPHEN 5-325 MG TABLET PO PRN ×3 (00:18→14:10)
[2016-11-13] MEDS: BENZONATATE 100 MG CAPSULE PO SCH ×3 (00:18→14:09)
[2016-11-13] MEDS: VALACYCLOVIR HCL 500 MG TABLET PO SCH ×3 (00:25→14:15)
[2016-11-13] MEDS: DEXAMETHASONE 4 MG TABLET PO SCH ×3 (00:27→14:09)
[2016-11-13] MEDS: ENOXAPARIN SODIUM INJ 40 MG/0.4 ML DISP.SYRIN SUBCUT SCH (09:37)
[2016-11-13] MEDS: DOCUSATE SODIUM 100 MG CAPSULE PO SCH (09:37)
[2016-11-13 15:39] VITALS: BP 136/63
--- NOTE | 2016-11-13 15:42 | PDOC DISCHARGE SUMMARY ---
General - Admit/Disc Date/PCP Admission Date/Primary Care Provider: 11/09/16 13:24 Discharge Date: 11/13/16 - Discharge Diagnosis (1) Herpes stomatitis Is this a current diagnosis for this admission?: Yes Summary: Pt was placed on antiviral. (2) Facial cellulitis Is this a current diagnosis for this admission?: Yes Summary: Pt was placed on Clindamycin. (3) Heroin abuse Is this a current diagnosis for this admission?: Yes Summary: Recommend not using Heroin. (4) Tobacco abuse Is this a current diagnosis for this admission?: Yes Summary: Recommend discontinuing to Tobacco abuse. - Additional Information Resuscitation Status: Full Code Home Medications: No Home Medications 11/09/16 History of Present Illness Patient complains of: Lower lip swelling History of Present Illness: LAURA GUTIERREZ II is a 31 year old male Hospital Course Hospital Course: Patient is a 31-year-old gentleman that was admitted to the hospital for lower lip cellulitis. Patient was initially started on treatment with vancomycin and Zosyn for concern for bacterial infection. 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 Patient was then started on Valtrex. Patient was seen by ears nose and throat who felt that patient's story of having an ingrown hair that was removed that started this infection was not accurate. ENT felt that patient's lip could possibly be secondary to trauma. ENT also stated that there was no indication for surgical intervention. I have only been involved with patient's care for 1 day and on my first day patient's father stated that he and the patient would like to be transferred to [facility]. Call was arranged and patient was accepted for transfer due to family request however family denied transfer due to cost of transfer. Patient then decided to sign out AGAINST MEDICAL ADVICE. Physical Exam Vital Signs: Temp Pulse Resp BP Pulse Ox 97.2 F 39 L 20 136/63 H 99 11/13/16 11:19 11/13/16 11:19 11/13/16 11:19 11/13/16 11:19 11/13/16 11:19 Intake & Output 11/12/16 11/13/16 11/14/16 06:59 06:59 06:59 Intake Total 1955 730 Output Total 525 1530 Balance 1430 -800 Weight 87.2 kg 87.3 kg General appearance: PRESENT: no acute distress, well-developed, well-nourished Head exam: PRESENT: atraumatic, normocephalic Eye exam: PRESENT: conjunctiva pink, EOMI, PERRLA. ABSENT: scleral icterus Ear exam: PRESENT: normal external ear exam Mouth exam: PRESENT: other - Lower lip with swelling escar with white vesicle with enduration. Neck exam: ABSENT: carotid bruit, JVD, lymphadenopathy, thyromegaly Respiratory exam: PRESENT: clear to auscultation chanell. ABSENT: rales, rhonchi, wheezes Cardiovascular exam: PRESENT: RRR. ABSENT: diastolic murmur, rubs, systolic murmur Pulses: PRESENT: normal dorsalis pedis pul Vascular exam: PRESENT: normal capillary refill GI/Abdominal exam: PRESENT: normal bowel sounds, soft. ABSENT: distended, guarding, mass, organolmegaly, rebound, tenderness Rectal exam: PRESENT: deferred Extremities exam: PRESENT: full ROM. ABSENT: calf tenderness, clubbing, pedal edema Neurological exam: PRESENT: alert, awake, oriented to person, oriented to place , oriented to time, oriented to situation, CN II-XII grossly intact. ABSENT: motor sensory deficit Psychiatric exam: PRESENT: appropriate affect, normal mood. ABSENT: homicidal ideation, suicidal ideation Skin exam: PRESENT: dry, warm Results Laboratory Results: 11/12/16 04:51 11/10/16 05:59 11/09/16 11/09/16 11/09/16 14:14 14:14 19:40 Creatine Kinase 56 74 CK-MB (CK-2) 0.70 Troponin I < 0.012 11/09/16 11/10/16 11/10/16 19:40 01:19 01:19 Creatine Kinase 45 L CK-MB (CK-2) 0.76 0.77 Troponin I < 0.012 < 0.012 Impressions: Soft Tissue Neck CT 11/09/16 10:44 IMPRESSION: Facial cellulitis along the lower lip, and chin soft tissues with tiny fluid collection present worrisome for small abscess. Submental reactive lymph nodes are present Qualifiers VTE patient discharged on overlapping Therapy?: Yes
== END 2016-11-13 14:42 | disposition left against medical advice (07) | DRG 603 ==
LOC: ER 10:31 → EH 13:13 → UNDOADMIN 13:13 → EH 13:24 → 4N 15:50
PROVIDERS: ADMIT Family Medicine; ATTEND Family Medicine
DX: L03.211 Cellulitis of face (principal); B00.2 Herpesviral gingivostomatitis and pharyngotonsillitis; F11.23 Opioid dependence with withdrawal; K13.0 Diseases of lips; F17.210 Nicotine dependence, cigarettes, uncomplicated; Z86.14 Personal history of Methicillin resistant Staphylococcus aureus infection; Z79.899 Other long term (current) drug therapy
CPT/HCPCS: 36415; 70491; 80048; 80053; 80202; 80307; 82550; 82553; 83036; 83605; 83735; 84484; 85025; 86695; 86696; 87040; 87250; 96374; 99285; J1100; J1170; J1885; J2543; J3370; J3490; J7030; J7060